=== PATIENT | female | born 1985 | race Two or more races ===

== ENCOUNTER 2024-07-07 18:14 | Emergency (ER) | payer OTHER ==
[~2024-07-07] VITALS: Ht 154.9 cm; Wt 49.9 kg
[~2024-07-07 18:14] MED LIST: IRON1 TAB; PRENATAL CAPLE1 EACH
[2024-07-07] MEDS ORDERED: KETOROLAC TROMETHAMINE 30 MG VIAL ONE (18:55)
[2024-07-07] MEDS ORDERED: KETOROLAC TROMETHAMINE 30 MG VIAL IV ONE (19:00)
[2024-07-07 19:13] LABS: URINE APPEARANCE Clear; URINE BILIRRUBIN Negative (NEGATIVE); URINE BLOOD Negative; URINE COLOR Yellow; URINE GLUCOSE Negative (NEGATIVE); URINE KETONE Negative (NEGATIVE); URINE LEUKOCYTE Trace; URINE NITRATE Negative; URINE PROTEIN Negative (NEGATIVE); URINE UROBILINOGEN 0.2 E.U./dl
[2024-07-07 19:14] LABS: HEMATOCRIT 35.7 % (36.0-45.00); HEMOGLOBIN 12.2 g/dL (12.0-15.00); MEAN CELL VOLUME 86.7 fL (80.00-100.00); MEAN CORPUSCULAR HEMOGLOBIN 29.6 pg (27.00-32.0); MEAN CORPUSCULAR HGB CONC 34.2 g/dl (32.0-36.0); PLATELET COUNT 225 K/uL (150-450); RED BLOOD COUNT 4.12 M/uL (4.00-6.00); RED CELL DISTRIBUTION WIDTH 13.8 % (11.5-14.5)
[2024-07-07 19:16] LABS: URINE RBC 43.9 uL (0.0-20.8); URINE WBC 8.9 uL (0.0-23.2)
[2024-07-07 19:41] LABS: ALBUMIN 4.4 gm/dL (3.4-5.0); BILIRUBIN TOTAL 1.42 mg/dL (0.3-1.2); CREATININE SERUM 0.83 mg/dL (0.55-1.02); GFR 77.35; GLOBULINA 3.5 G/DL (2.4-3.5); POTASSIUM 3.74 mEq/L (3.5-5.1); TOTAL PROTEIN 7.9 gm/dL (6.4-8.2)
== END 2024-07-07 21:22 | disposition home or self-care (01) ==
LOC: ER 18:15
PROVIDERS: General Practice
DX: R10.2 Pelvic and perineal pain (principal)

== ENCOUNTER 2025-02-02 11:28 | Day surgery (SDC) | payer OTHER ==
[2025-02-02] MEDS ORDERED: POVIDONE-IODINE 118 ML BOTT TOP ONE (14:44)
[2025-02-02] MEDS ORDERED: RINGERS SOLUTION,LACTATED 1,000 ML IV SCH (17:15)
== END 2025-02-02 19:30 | disposition home or self-care (01) ==
LOC: CIR.AMB 11:28
PROVIDERS: ATTEND Obstetrics & Gynecology
DX: N84.0 Polyp of corpus uteri (principal); E16.2 Hypoglycemia, unspecified; N28.9 Disorder of kidney and ureter, unspecified